=== PATIENT | male | born 1980 | race Caucasian/White ===

== ENCOUNTER 2017-06-30 18:33 | Emergency (ER) | payer OTHER ==
[~2017-06-30] VITALS: Ht 190.5 cm; Wt 81.6 kg
--- NOTE | 2017-06-30 18:48 | NUR ---
[id number]: ETOH INTOXICATED, PT STATES "I DO NOT FEEL GOOD". PATIENT IS AAO3. VSS
[2017-06-30] MEDS ORDERED: IV NS 0.9% 1,000 ML BAG IV ONE (19:30)
[2017-06-30] MEDS ORDERED: ONDANSETRON HCL/PF 4 MG/2 ML VIAL IVP ONE (19:30)
[2017-06-30] MEDS ORDERED: ONDANSETRON HCL/PF 4 MG/2 ML VIAL ONE (19:34)
--- NOTE | 2017-06-30 20:35 | NUR ---
PTSLEEPING IN NO APPARENT DISTRESS, VSS, WILL CONTINUE TO MONITOR.
--- NOTE | 2017-06-30 20:54 | NUR ---
Patient discharged to home in stable condition. Written and verbal after care instructions given. Patient verbalizes understanding of instruction.IV removed. Catheter intact and site benign. Pressure and 4x4 applied to site. No bleeding noted.
[2017-06-30 20:55] VITALS: BP 102/70
== END 2017-06-30 20:55 | disposition home or self-care (01) ==
LOC: ER 18:35
DX: R11.2 Nausea with vomiting, unspecified (principal); F10.10 Alcohol abuse, uncomplicated
CPT/HCPCS: A4606; J2405; J7030; Z7610

== ENCOUNTER 2017-10-19 10:44 | Emergency (ER) | payer OTHER ==
[~2017-10-19] VITALS: Ht 190.5 cm; Wt 72.6 kg
--- NOTE | 2017-10-19 10:50 | NUR ---
PRESENTS TO ER C/O NAUSEA, VOMITING x 2 DAYS S/P ETOH ABUSE. A/OX 4, BREATHING EVEN AND UNLABORED. NO SOB, NAD, VITALS STABLE. SAFETY AND COMFORT MEASURES IN PLACE. AWAITING MD ORDERS.
[2017-10-19] MEDS ORDERED: ONDANSETRON HCL/PF 4 MG/2 ML VIAL ONE (11:20)
[2017-10-19 11:27] LABS: CALCIUM, SERUM 9.7 mg/dL (8.5-10.1); CREATININE 1.1 mg/dL (0.6-1.3); POTASSIUM 3.6 mmol/L (3.5-5.1)
[2017-10-19 11:29] LABS: BASOPHILS % (AUTO) 0.4 % (0.0-2.0); HEMATOCRIT 48 % (39-51); HEMOGLOBIN 16.8 g/dL (13.5-17.5); LYMPHOCYTES # (AUTO) 1.3 /CMM (0.8-4.8); LYMPHOCYTES % (AUTO) 12.9 % (20.0-44.0); MEAN CORPUSCULAR HEMOGLOBIN 32 PG (26.0-33.0); MEAN CORPUSCULAR HGB CONC 35 g/dl (31.0-36.0); MEAN CORPUSCULAR VOLUME 93 fL (80-96); MONOCYTES # (AUTO) 0.6 /CMM (0.1-1.30); MONOCYTES % (AUTO) 5.7 % (2.0-12.0); NEUTROPHILS # (AUTO) 8.1 /CMM (1.8-8.9); PLATELET COUNT (AUTO) 251 /CMM (150-450); RED BLOOD CELL COUNT(AUTO) 5.18 MIL/uL (4.5-6.0)
--- NOTE | 2017-10-19 11:29 | NUR ---
NEW IV STARTED ON LFA, 20G. PATIENT MEDICATED PER MD ORDERS
[2017-10-19] MEDS ORDERED: IV NS 0.9% 1,000 ML BAG IV ONE (11:30)
[2017-10-19] MEDS ORDERED: ONDANSETRON HCL/PF 4 MG/2 ML VIAL IVP ONE (11:30)
[2017-10-19 11:33] LABS: ALBUMIN 4.5 g/dL (3.4-5.0); BILIRUBIN,DIRECT 0.3 mg/dL (0.0-0.2); BILIRUBIN,TOTAL 1.4 mg/dL (0.2-1.0)
[2017-10-19 13:41] VITALS: BP 132/68
== END 2017-10-19 13:41 | disposition home or self-care (01) ==
LOC: ER 10:47
DX: F10.10 Alcohol abuse, uncomplicated (principal); R11.2 Nausea with vomiting, unspecified; E86.0 Dehydration; Z60.2 Problems related to living alone; Y90.9 Presence of alcohol in blood, level not specified
CPT/HCPCS: 36415; 80048; 80076; 83690; 85025; 96361; 96374; 99284; A4606; J2405; J7030; Z7610

== ENCOUNTER 2019-06-06 12:15 | Emergency (ER) | payer OTHER ==
[~2019-06-06] VITALS: Ht 188 cm; Wt 74.8 kg
[2019-06-06 12:27] VITALS: BP 128/57
== END 2019-06-06 13:00 | disposition home or self-care (01) ==
LOC: ER 12:20
DX: M54.16 Radiculopathy, lumbar region (principal); Z60.2 Problems related to living alone

== ENCOUNTER 2019-07-10 19:11 | Emergency (ER) | payer OTHER ==
[~2019-07-10] VITALS: Ht 188 cm; Wt 74.8 kg
[2019-07-10 19:18] VITALS: BP 118/76
--- NOTE | 2019-07-10 20:17 | NUR ---
Patient discharged to home in stable condition. Written and verbal after care instructions given. Patient verbalizes understanding of instruction.
== END 2019-07-10 20:17 | disposition home or self-care (01) ==
LOC: ER 19:15
DX: S20.212A Contusion of left front wall of thorax, initial encounter (principal); Z60.2 Problems related to living alone; W18.39XA Other fall on same level, initial encounter; Y93.89 Activity, other specified; Y92.89 Other specified places as the place of occurrence of the external cause; Y99.8 Other external cause status
CPT/HCPCS: 71100-TC

== ENCOUNTER 2019-11-30 19:51 | Emergency (ER) | payer OTHER ==
[~2019-11-30] VITALS: Ht 185.4 cm; Wt 70.3 kg
--- NOTE | 2019-11-30 20:08 | NUR ---
called pt in wr x 3. no one responded in wr. fill follow up.
[2019-11-30 20:26] VITALS: BP 133/74
--- NOTE | 2019-11-30 20:35 | NUR ---
PT ROSIE AT BEDSIDE
--- NOTE | 2019-11-30 20:47 | NUR ---
Patient discharged to home in stable condition. Written and verbal after care instructions given. Patient verbalizes understanding of instruction.
== END 2019-11-30 20:47 | disposition home or self-care (01) ==
LOC: ER 19:51
DX: Z76.0 Encounter for issue of repeat prescription (principal); R05 Cough; Z60.2 Problems related to living alone
CPT/HCPCS: 99281; L0172

== ENCOUNTER 2020-02-23 01:47 | Emergency (ER) | payer OTHER ==
[~2020-02-23] VITALS: Ht 190.5 cm; Wt 74.8 kg
[2020-02-23 01:52] VITALS: BP 160/93
== END 2020-02-23 02:33 | disposition home or self-care (01) ==
LOC: ER 01:50
DX: F14.10 Cocaine abuse, uncomplicated (principal); R00.0 Tachycardia, unspecified; Z60.2 Problems related to living alone

== ENCOUNTER 2021-03-25 03:06 | Emergency (ER) | payer OTHER ==
--- NOTE | 2021-03-25 03:32 | NUR ---
PLEASE REFER TO DOWN TIME NOTES Patient does not wish to proceed with medical care recommended by Dr. B[place]. Patient given information related to possible complications, up to and including , which could occur as a result of leaving the hospital at this time. Patient verbalizes understanding of risks involved due to leaving against medical advice. Patient has signed AMA form.
== END 2021-03-25 03:32 | disposition left against medical advice (07) ==
LOC: ER 03:06
DX: R07.89 Other chest pain (principal); F14.10 Cocaine abuse, uncomplicated; F10.129 Alcohol abuse with intoxication, unspecified; Z60.2 Problems related to living alone; Y90.9 Presence of alcohol in blood, level not specified

== ENCOUNTER 2023-12-25 15:15 | Emergency (ER) | payer OTHER ==
[~2023-12-25] VITALS: Ht 188 cm; Wt 79.4 kg
[2023-12-25] MEDS ORDERED: LIDOCAINE 1% INJ 50 ML MDV IJ ONE (15:46)
[2023-12-25] MEDS: LIDOCAINE HCL/PF 1% 30 ML VIAL TP ONE (15:58)
[2023-12-25] MEDS ORDERED: SULF1TAB48 PO (16:38)
[2023-12-25] MEDS ORDERED: IBUP-1955 PO (16:38)
[2023-12-25 16:50] VITALS: BP 127/70; TEMP 98.6; O2SAT 99
== END 2023-12-25 16:45 | disposition home or self-care (01) ==
LOC: ER 15:15
DX: L02.31 Cutaneous abscess of buttock (principal); F19.10 Other psychoactive substance abuse, uncomplicated
CPT/HCPCS: 99283; 10060; J3490 ×2; A6403